=== PATIENT | female | born 1990 | race Caucasian/White ===

== ENCOUNTER 2019-09-07 13:26 | Emergency (ER) | payer OTHER, SELFPAY ==
[2019-09-07 14:00] VITALS: BP 120/82; PULSE 52; RESP 18; TEMP 36.6; O2SAT 97
--- NOTE | 2019-09-07 15:21 | PC.NURSE ---
pt left without being seen triage completed pt did not want to wait any longer charge entry clerk and providers made aware
== END 2019-09-07 14:30 | disposition left against medical advice (07) ==
DX: Z53.21 Procedure and treatment not carried out due to patient leaving prior to being seen by health care provider (principal)
CPT/HCPCS: 99199

== ENCOUNTER 2020-02-24 13:36 | Emergency (ER) | payer OTHER, SELFPAY ==
[2020-02-24 13:53] VITALS: BP 107/62; PULSE 94; RESP 20; TEMP 37.5; O2SAT 98
--- NOTE | 2020-02-24 14:17 | ED.URI ---
HPI - URI/Sore Throat General Chief Complaint: Upper Respiratory Infection Stated Complaint: Sore throat Time Seen by Provider: 02/24/20 14:08 Source: patient and RN notes reviewed Mode of arrival: ambulatory Limitations: no limitations History of Present Illness HPI Narrative: Patient presents today complaining of a 2-day history of sore throat, nasal congestion, postnasal drip, and wheezing. Denies fever, rhinorrhea, headache, nausea or vomiting, loss of taste or smell. States she has a cough at baseline due to excessive smoking. No known COVID-19 exposure. Reports wheezing due to asthma that has been worse over the last 2 days. She has been drinking hot tea, but has taken no medication for symptoms prior to arrival. MD elicited complaint: sore throat Related Data Home Medications Medication Instructions Recorded Confirmed amlodipine 02/24/20 Allergies Allergy/AdvReac Type Severity Reaction Status Date / Time Lobster Allergy Unknown Itching Uncoded 02/11/15 20:41 Review of Systems Review of Systems: Narrative: CONSTITUTIONAL: Denies body aches, fever, chills, or sweats. EYES: Denies visual changes, redness, or discharge. ENT: Denies rhinorrhea, or otalgia.+ Congestion, sore throat, postnasal drip CARDIOVASCULAR: Denies chest pain, palpitations, or edema. RESPIRATORY: Denies cough. + Wheezing GASTROINTESTINAL: Denies abdominal pain, nausea, vomiting, or diarrhea. GENITOURINARY: Denies dysuria or hematuria. SKIN: Denies rash, itching, or wounds. MUSCULOSKELETAL: Denies back pain, joint pain, or myalgia. NEUROLOGIC: Denies headache, numbness, tingling, or weakness. PSYCH: Denies depression or anxiety. [facility] Past Medical History Medical History (Updated 02/24/20 @ 14:39 by Ankita Victoria, [facility], ) Asthma Social History Social History Gender identity (if verbalized by the patient): Female Comments At time of signature, I have reviewed and agree with nursing past medical, surgical, social and family history unless otherwise noted. Please see nursing chart for further information. There is no relevant family history pertinent to the presenting complaint Exam Narrative: Exam Narrative: GENERAL: Well-appearing, well-nourished, and in no acute distress. HEAD: Normocephalic, atraumatic. EYES: EOMI. No redness or drainage. Conjunctivae normal. ENT: Mucous membranes pink and moist. Nares congested. No rhinorrhea. TMs normal bilaterally. Throat normal. Uvula midline. NECK: Normal AROM. Supple. No lymphadenopathy. CHEST: No respiratory distress. Slight expiratory wheeze in the left lower lobe, otherwise clear. HEART: Regular rate and rhythm. No murmur appreciated. Normal peripheral pulses. EXTREMITIES: Normal range of motion. No edema. SKIN: Warm, dry, no rash. Capillary refill normal. Normal skin turgor. NEURO: No focal deficits. Alert and oriented x3. Gait steady. PSYCH: Normal affect. No signs of depression or anxiety. Course Course Emergency Course: Due to recent exposure and symptoms, patient may have a possible COVID-19 infection. Signs and symptoms discussed with patient. Patient educated to self-isolate in a room in his/her home away from others they live with. Use mask if available. Patient was advised not to leave house for any reason ? Self-treatment discussed including Tylenol for fever, pain, or myalgia, and cough cold medications for symptoms. Patient to check temperature daily and monitor for symptoms of respiratory distress. Patient should check in daily with primary care office/system via phone/virtual platform ? Nature of the disease to cause severe respiratory distress discussed with the patient. If emergent care is needed, instructed to notify EMS or primary care office/system that he/she may have COVID-19 to allow for proper preparation of PPE and isolation measures Patient is declining COVID-19 testing today. Vital Signs Vital signs: Vital Signs Temper
== END 2020-02-24 14:26 | disposition home or self-care (01) ==
PROVIDERS: Emergency Provider Nurse Practitioner; PCP Emergency Medicine
DX: J06.9 Acute upper respiratory infection, unspecified (principal); J45.909 Unspecified asthma, uncomplicated
CPT/HCPCS: 87081; 87880; 99213; G0463

== ENCOUNTER 2020-03-12 08:13 | Emergency (ER) | payer OTHER, SELFPAY ==
--- NOTE | 2020-03-12 08:23 | ED.GENADULT ---
HPI - General Adult General Chief complaint: Upper Respiratory Infection Stated complaint: Sore Throat Time Seen by Provider: 03/12/20 08:27 Source: patient and RN notes reviewed Mode of arrival: ambulatory Limitations: no limitations History of Present Illness HPI narrative: 29-year-old female presents with complaints of sore throat for the past 3 days. Increase cough believes it is mostly related to her smoking. Throat spray and Tylenol without relief. No high fevers, drooling, neck or throat swelling. Pain is bilateral, mainly on LT side. Hurts to swallow. Exacerbation factors consist of smoking, eating, and drinking. No rhinorrhea and nasal congestion. No voice change. No nausea, vomiting, or abdominal pain. Tolerating liquids well. Denies difficulty swallowing, jaw pain, dental pain, facial pain, foreign body sensation, and rash. LMP 03/08/20. Remains active. The patient reports she have not been diagnosed with COVID-19. The patient reports she is not waiting for the results of a COVID-19 lab test. The patient reports she do not have chills, weakness, or fatigue. The patient reports she do not have shortness of breath. Denies chest pain. The patient reports she do not have any loss of taste and diarrhea. Denies recent traveling. Denies concerns for COVID-19 or exposures been home with limited outdoor exposure except for essential household needs and return home. At this time, patient is not suspected of having COVID-19. Some parts of this dictation were generated by voice recognition software and may contain typographical and/or grammatical inaccuracies. Related Data Home Medications Medication Instructions Recorded Confirmed amlodipine 5 mg PO DAILY 02/24/20 03/12/20 clonidine HCl 0.1 mg PO DAILY 03/12/20 03/12/20 trazodone 100 mg PO HS 03/12/20 03/12/20 Allergies Allergy/AdvReac Type Severity Reaction Status Date / Time Iodine and Iodide Containing AdvReac Intermediate Hives Verified 03/12/20 08:52 Produc Lobster Allergy Intermediate Itching Uncoded 03/12/20 08:51 Review of Systems Review of Systems: Narrative: CONSTITUTIONAL: Denies fever, chills, sweats. EYES: Denies visual changes, redness, discharge. ENT: Denies rhinorrhea, congestion, otalgia. Complains of sore throat. CARDIOVASCULAR: Denies chest pain, palpitations, edema. RESPIRATORY: Denies dyspnea, wheezing. Complains of dry cough. GASTROINTESTINAL: Denies abdominal pain, nausea, vomiting, diarrhea. SKIN: Denies rash or itching. MUSCULOSKELETAL: Denies acute back pain, joint pain, or myalgia. NEUROLOGIC: Denies numbness or focal weakness. PSYCHIATRIC: Denies anxiety or depression. All systems reviewed & are unremarkable except as noted in HPI and below. [facility] Past Medical History Medical History (Updated 03/13/20 @ 00:00 by Katherine Ann) Anxiety Asthma Depression Eczema History of strep sore throat Hypertension Smoker Substance abuse Surgical History Surgical History (Updated 03/12/20 @ 11:51 by GABRIELA Gr) No significant past surgical history Family History Family History (Updated 03/12/20 @ 11:52 by GABRIELA Gr) Father Bipolar disorder Hypertension Mother Hypertension Social History Social History (Updated 03/12/20 @ 11:53 by GABRIELA Gr) Smoking packs per day: 1 Smoking cigarettes per day: 20.0 Years smoked: 15 Smoking pack-years: 15.00 Smoking status: Current every day smoker Tobacco type: cigarettes Second hand tobacco smoke exposure: Yes Alcohol intake: never Substance use: current Substance use type: marijuana Gender identity (if verbalized by the patient): Female Comments At time of signature, agree with nurse past medical, surgical, social, and family history. There is relevant patient's past medical history pertinent to the presenting complaint, no relevant family history pertinent to the presenting complaint. Exam Narrati
[2020-03-12 08:29] VITALS: BP 118/80; PULSE 96; RESP 16; TEMP 37.1; O2SAT 96
== END 2020-03-12 09:19 | disposition home or self-care (01) ==
PROVIDERS: Emergency Provider Nurse Practitioner Family; PCP Emergency Medicine
DX: J02.9 Acute pharyngitis, unspecified (principal); F17.210 Nicotine dependence, cigarettes, uncomplicated; J45.909 Unspecified asthma, uncomplicated; I10 Essential (primary) hypertension; F32.9 Major depressive disorder, single episode, unspecified
CPT/HCPCS: 87081; 87804; 87880; 99213; G0463

== ENCOUNTER 2020-09-06 14:45 | Emergency (ER) | payer OTHER, SELFPAY ==
--- NOTE | 2020-09-06 15:05 | ED.UPPEXIN ---
HPI - Extremity Injury (Upper) General Chief Complaint: Extremity Injury, Upper Stated Complaint: Left hand thumb swollen Time Seen by Provider: 09/06/20 15:05 Source: patient Mode of arrival: ambulatory Limitations: no limitations History of Present Illness HPI narrative: Vanessa Mayberry is a 29 yo female with a PMH of HTN, asthma, anxietyt, kidnet failure, and hx of renal dialysis, who comes to [facility] with a tight, swollen area in palmar area of L thumb. Both hands have rubris, swelling, appears quite shaky. States that her finger is causing a lot of pain she clearly has a reddened area on the palmar side that appears to be cellulitis; states she woke up with it this morning like this patient also stated during intake that she has been in kidney failure before and on dialysis; pain medication but we should issue with cannot give her Toradol. Patient appears quite agitated possibly due to withdrawal some sort. Patient's left thumb is soaking so can better assess finger. Related Data Home Medications Medication Instructions Recorded Confirmed albuterol sulfate 2 mcg INHALATION Q6-12H 09/06/20 09/06/20 alprazolam 1 mg PO TID 09/06/20 09/06/20 amlodipine 1 mg PO DAILY 09/06/20 09/06/20 budesonide-formoterol [Symbicort] 2 inh INHALATION BID 09/06/20 09/06/20 clonidine HCl 1 mg PO BID 09/06/20 09/06/20 quetiapine 1 mg PO BID 09/06/20 09/06/20 Allergies Allergy/AdvReac Type Severity Reaction Status Date / Time Iodine and Iodide Containing AdvReac Intermediate Hives Verified 09/06/20 15:08 Produc Lobster Allergy Intermediate Itching Uncoded 09/06/20 15:08 Review of Systems Review of Systems: Narrative: CONSTITUTIONAL: Denies fever, chills, sweats. EYES: Denies visual changes, redness, discharge. ENT: Denies rhinorrhea, congestion, sore throat, otalgia. CARDIOVASCULAR: Denies chest pain, palpitations, edema. RESPIRATORY: Denies dyspnea, wheezing, cough GASTROINTESTINAL: Denies abdominal pain, nausea, vomiting, diarrhea. GENITOURINARY: Denies dysuria, hematuria, abnormal discharge SKIN: Denies rash or itching. Right thumb discoloration and swelling along with both hands appearing somewhat swollen NEUROLOGIC: Denies numbness, or focal weakness. PSYCHIATRIC: Denies anxiety or depression. [facility] Past Medical History Medical History Anxiety Asthma Depression Eczema History of strep sore throat Hypertension Smoker Substance abuse Surgical History Surgical History No significant past surgical history Family History Family History Father Bipolar disorder Hypertension Mother Hypertension Social History Social History Smoking packs per day: 1 Smoking cigarettes per day: 20.0 Years smoked: 15 Smoking pack-years: 15.00 Smoking status: Current every day smoker Tobacco type: cigarettes Second hand tobacco smoke exposure: Yes Alcohol intake: never Substance use: current Substance use type: marijuana Gender identity (if verbalized by the patient): Female Comments At time of signature, I agree with nursing past medical, surgical, social and family history. There is no relevant family history pertinent to the presenting complaint. Exam Narrative: Exam Narrative: GENERAL: This is a well-nourished, well-developed patient, in mild distress. HEAD: normocephalic, atraumatic. EYES: PERRL. Sclera clear/white. Vision is grossly intact. EARS: External ears normal, auditory canals clear and without drainage, TMs normal without perforation. Hearing grossly intact. NOSE: External nose normal without nasal discharge, nares without redness, no rhinorrhea. THROAT: Mucous membranes moist, posterior pharynx NECK: Neck supple, non-tender CARDIOVASCULAR: Regular rate and rhythm w
[2020-09-06 15:07] VITALS: BP 122/77; PULSE 108; RESP 20; TEMP 37.3; O2SAT 99
[2020-09-06] MEDS: LIDOCAINE HCL 1% LOCAL INJ 20 ML VIAL 2.1 ML IM (15:33)
[2020-09-06] MEDS: cefTRIAXone 1 GM VIAL IM (15:34)
--- NOTE | 2020-09-06 16:09 | PC.NURSE ---
1558- Pt called out from room stating she was late for work and needed to leave, [employer] KIT ASSEMBLER notified.
== END 2020-09-06 16:08 | disposition home or self-care (01) ==
PROVIDERS: Emergency Provider Nurse Practitioner
DX: M79.89 Other specified soft tissue disorders (principal); L03.012 Cellulitis of left finger; F17.210 Nicotine dependence, cigarettes, uncomplicated; F41.9 Anxiety disorder, unspecified; F32.9 Major depressive disorder, single episode, unspecified; J45.909 Unspecified asthma, uncomplicated; I10 Essential (primary) hypertension
CPT/HCPCS: 96372; 99213; G0463; J0696

== ENCOUNTER 2020-09-10 11:12 | Emergency (ER) | payer OTHER, SELFPAY ==
--- NOTE | ~2020-09-10 | XR_ITS ---
EXAMINATION: XR finger 1st LT min 2V DATE: 09/10/2020 11:37 INDICATION: Left thumb swelling and redness. TECHNIQUE: 3 views of left thumb were obtained. COMPARISON: None. FINDINGS: Bone alignment is normal. No fracture. Joint spaces are well maintained. IMPRESSION: 1. No fracture. Reviewed, dictated and finalized at location B. IMPRESSION: 1. No fracture.
--- NOTE | 2020-09-10 11:15 | ED.WOUNDLAC ---
HPI - Wound/Laceration General Chief Complaint: Wound/Laceration Stated Complaint: Thumb Swelling Time Seen by Provider: 09/10/20 11:30 Source: patient and RN notes reviewed Mode of arrival: ambulatory Limitations: no limitations History of Present Illness HPI narrative: 29-year-old female presents concern for continued redness, swelling, pain the first digit of the left hand. Reports she was seen in this clinic on September 06, was treated for cellulitis. Reports she has been taking antibiotics as directed with no improvement. She denies other intervention. Reports dorsal first digit redness, pain, swelling, tenderness. Denies decrease sensation or strength. Denies injury or trauma. Reports history of eczema on both hands and she gets cracks in her hands. Extremity Location: Left: hand Related Data Home Medications Medication Instructions Recorded Confirmed albuterol sulfate 2 mcg INHALATION Q6-12H 09/06/20 09/06/20 alprazolam 1 mg PO TID 09/06/20 09/06/20 amlodipine 1 mg PO DAILY 09/06/20 09/06/20 budesonide-formoterol [Symbicort] 2 inh INHALATION BID 09/06/20 09/06/20 clonidine HCl 1 mg PO BID 09/06/20 09/06/20 quetiapine 1 mg PO BID 09/06/20 09/06/20 Implanon 09/10/20 Allergies Allergy/AdvReac Type Severity Reaction Status Date / Time Iodine and Iodide Containing AdvReac Intermediate Hives Verified 09/06/20 15:08 Produc Lobster Allergy Intermediate Itching Uncoded 09/06/20 15:08 Review of Systems Review of Systems: Narrative: CONSTITUTIONAL: Denies malaise, chills, sweats, or fever. CARDIOVASCULAR: Denies chest pain, palpitations, or edema. RESPIRATORY: Denies cough or dyspnea. GASTROINTESTINAL: Denies nausea, vomiting SKIN: Reports redness, swelling, pain, tenderness of the dorsal aspect of the first digit of left hand. Denies drainage MUSCULOSKELETAL: Denies muscle skeletal pain, decreased strength or sensation, or myalgia. NEUROLOGIC: Denies numbness, weakness All systems reviewed & are unremarkable except as noted in HPI and below PMFSH Past Medical History Medical History Anxiety Asthma Depression Eczema History of strep sore throat Hypertension Smoker Substance abuse Surgical History Surgical History No significant past surgical history Family History Family History Father Bipolar disorder Hypertension Mother Hypertension Social History Social History Smoking packs per day: 1 Smoking cigarettes per day: 20.0 Years smoked: 15 Smoking pack-years: 15.00 Smoking status: Current every day smoker Tobacco type: cigarettes Second hand tobacco smoke exposure: Yes Alcohol intake: never Substance use: current Substance use type: marijuana Gender identity (if verbalized by the patient): Female Comments At time of signature, agree with nursing past medical, surgical, social and family history. There is no relevant family history pertinent to the presenting complaint Exam Narrative: Exam Narrative: GENERAL: Well-appearing, well-nourished, and in no acute distress. HEAD: Normocephalic EYES: PERRLA, conjunctivae clear NECK: Supple. CHEST: Speaks in full sentences. No respiratory distress. HEART: Regular rate and rhythm. Normal and equal peripheral pulses. EXTREMITIES: First digit of left hand has normal strength and sensation. 5/5 strength with digit flexion, extension. Range of motion limited due to swelling. Moderate dorsal tenderness. Normal thumb opposition. Good capillary refill and radial pulse. Distal capillary refill less than 3 seconds. SKIN: Warn, dry, intact, pink. First digit of left hand has dorsal erythema, edema, tenderness, possible fluctuation felt, however digit was tight. Healing puncture wounds noted to multiple digit webspaces on both woo
[2020-09-10 11:20] VITALS: BP 105/73; PULSE 113; RESP 16; TEMP 37.4; O2SAT 98
--- NOTE | 2020-09-10 11:37 | PC.NURSE ---
moved to rm 1 per felt hat inspector and packer request.
--- NOTE | 2020-09-10 12:02 | PC.NURSE ---
dr. menard called with need for f/u and further evaluation. day care aide consulting now.
--- NOTE | 2020-09-10 12:03 | PC.NURSE ---
resident care technician did i and d.
--- NOTE | 2020-09-10 12:09 | PC.NURSE ---
reimbursement spec consulted with dr. menard and recommendation is further evaluation. pt agreed to transfer to slu for further evaluation.
--- NOTE | 2020-09-10 12:39 | PC.NURSE ---
barn manager was faxed to u at
== END 2020-09-10 12:09 | disposition short-term general hospital (02) ==
LOC: EXPCOLL 11:14
PROVIDERS: Emergency Provider Nurse Practitioner; PCP Family Medicine
DX: L02.512 Cutaneous abscess of left hand (principal); F17.210 Nicotine dependence, cigarettes, uncomplicated; J45.909 Unspecified asthma, uncomplicated; F41.9 Anxiety disorder, unspecified; F32.9 Major depressive disorder, single episode, unspecified; I10 Essential (primary) hypertension
CPT/HCPCS: 26010; 73140; 99213; G0463